=== PATIENT | female | born 1980 | race Caucasian/White ===

== ENCOUNTER 2019-06-14 18:08 | Observation (INO) | payer OTHER ==
[~2019-06-14] VITALS: Ht 157.5 cm; Wt 82.1 kg
[~2019-06-14 18:08] MED LIST: ALPR1TAB2 PO; OXYC-302 PO; VANC250C12 PO
--- NOTE | 2019-06-14 18:25 | NUR ---
KULDIP. REPORT RECEIVED FROM EMS. PT TOOK ONE FAKE PERCOCET(IT WAS GIVEN BY PT'S FRIEND AND PT THOUGHT IT WAS PERCOCET) THEN UNRESPONSIVE AT HOME. NARCAN GIVEN CARDIOVASCULAR RADIOLOGIC TECHNOLOGIST AND PT BECAME AOX3. RESPS EVEN AND UNLABORED. ALL MONITORS IN PLACE. CALL LIGHT WITHIN REACH.
--- NOTE | 2019-06-14 18:55 | NUR ---
Report received from Kourtney IBARRA.
--- NOTE | 2019-06-14 18:56 | NUR ---
REPORT GIVEN TO ONIEL IBARRA.
--- NOTE | 2019-06-14 19:10 | NUR ---
Trialed pt off O2. SpO2 measured as low as 69% at room air. Pt placed on 3 lpm O2 for low SpO2 readings.
[2019-06-14 19:54] LABS: MEAN CORPUSCULAR HEMOGLOBIN 30.6 pg (27.0-34.8); MEAN CORPUSCULAR HGB CONC 33.3 g/dL (32.4-35.8); PLATELET COUNT 355 x10^3/uL (130-400); RED BLOOD COUNT 4.41 x10^6/uL (3.82-5.3); RED CELL DISTRIBUTION WIDTH 13.7 % (9.6-15.2)
[2019-06-14 19:59] LABS: CHLORIDE 106 mmol/L (98-107)
[2019-06-14 20:04] LABS: ALANINE AMINOTRANSFERASE 62 U/L (12-78); ALBUMIN 3.8 g/dL (3.4-5.0); ALKALINE PHOSPHATASE 101 U/L (45-117); ANION GAP 6 mmol/L (5-15); BILIRUBIN,TOTAL 0.3 mg/dL (0.2-1.0); CALCIUM 8.2 mg/dL (8.5-10.1); CREATININE 0.88 mg/dL (0.55-1.02)
[2019-06-14] MEDS ORDERED: ONDANSETRON 2MG/ML, 2ML ONE (20:12)
[2019-06-14 20:17] LABS: BASOPHILS # (AUTO) 0.05 x10^3/uL (0-0.1); BASOPHILS % (AUTO) 0 % (0-1); EOSINOPHILS # (AUTO) 0.15 x10^3/uL (0-0.4); EOSINOPHILS % (AUTO) 1 % (1-7); LYMPHOCYTES # (AUTO) 1.33 x10^3/uL (1-3.4); LYMPHOCYTES % (AUTO) 4 % (22-44); MD SCAN; MONOCYTES # (AUTO) 1.34 x10^3/uL (0.2-0.8); MONOCYTES % (AUTO) 4 % (2-9); NEUTROPHILS # (AUTO) 27.49 x10^3/uL (1.8-6.8); NEUTROPHILS % (AUTO) 91 % (42-75)
[2019-06-14] MEDS ORDERED: SODIUM CHLORIDE 0.9% 1,000ML IVBOLUS ONE (20:30)
[2019-06-14] MEDS ORDERED: ONDANSETRON 2MG/ML, 2ML IVPush ONE (20:30)
--- NOTE | 2019-06-14 20:43 | NUR ---
PT. WAS VOMITING IN ROOM ABOUT 200ML OF UNDIGESTED FOOD. NEW ORDERS WERE RECEIVED FROM DR. LOPES. IV WAS NON-FUNCTIONING. NEW IV PLACED AND PT. MEDICATED PER MAR. IVF INFUSING PER ORDER. FRIEND AT FOR SUPPORT. ALL MONIOTRS REMAIN IN PLACE. ALL SAFETY MEASURES OBSERVED. PT. DROWSY BUT IS ABLE TO COMMUNICATE APPROPRIATELY WITH STAFF.
--- NOTE | 2019-06-14 21:59 | NUR ---
PT. MORE AWAKE AND SPEAKING WITH FRIEND AT BS. PT. REPORTS HER ONLY HOME MED IS PERCOCET FOR BACK PAIN. PT. REMAINS ON 2L OF O2 TO MAINTAIN O2 SAT IN THE HIGH 90'S. AWARE OF PLAN FOR ADMISSION.
--- NOTE | 2019-06-14 22:09 | NUR ---
FIRST ATTEMPT TO CALL REPORT TO FLOOR.
--- NOTE | 2019-06-14 22:13 | NUR ---
Report called to Rosanne IBARRA
[2019-06-14 22:33] VITALS: BP 117/76
[2019-06-14 23:34] VITALS: BP 117/76
[2019-06-15] MEDS ORDERED: ONDANSETRON 2MG/ML, 2ML IVPush PRN
[2019-06-15] MEDS ORDERED: ACETAMINOPHEN 325 MG TABLET PO PRN
[2019-06-15] MEDS ORDERED: IBUPROFEN 600 MG TABLET PO PRN
[2019-06-15] MEDS: SODIUM CHLORIDE 0.9% 1,000 ML IV SCH ×2 (00:42→07:57)
[2019-06-15] MEDS: HEPARIN 5,000 UNITS/ML, 1ML SQ SCH ×2 (00:42→07:57)
[2019-06-15 00:59] VITALS: BP 117/78
[2019-06-15 05:10] LABS: BASOPHILS # (AUTO) 0.02 x10^3/uL (0-0.1); BASOPHILS % (AUTO) 0 % (0-1); EOSINOPHILS % (AUTO) 0 % (1-7); LYMPHOCYTES # (AUTO) 1.68 x10^3/uL (1-3.4); LYMPHOCYTES % (AUTO) 10 % (22-44); MD NO; MEAN CORPUSCULAR HEMOGLOBIN 30.2 pg (27.0-34.8); MEAN CORPUSCULAR HGB CONC 32.7 g/dL (32.4-35.8); MEAN CORPUSCULAR VOLUME 92.4 fL (80-100); MEAN PLATELET VOLUME 7.9 fL (7.4-10.4); MONOCYTES # (AUTO) 0.82 x10^3/uL (0.2-0.8); MONOCYTES % (AUTO) 5 % (2-9); NEUTROPHILS # (AUTO) 15.08 x10^3/uL (1.8-6.8); NEUTROPHILS % (AUTO) 86 % (42-75); PLATELET COUNT 306 x10^3/uL (130-400); RED BLOOD COUNT 3.91 x10^6/uL (3.82-5.3); RED CELL DISTRIBUTION WIDTH 13.8 % (9.6-15.2)
[2019-06-15 05:14] LABS: ANION GAP 7 mmol/L (5-15); CALCIUM 8.1 mg/dL (8.5-10.1); CHLORIDE 107 mmol/L (98-107)
[2019-06-15 05:17] LABS: CREATININE 0.54 mg/dL (0.55-1.02)
[2019-06-15 06:19] LABS: AMPHETAMINE SCREEN, URINE Negative (Negative); BARBITURATE SCREEN, URINE Negative (Negative); BENZODIAZEPINE SCREEN, URINE Negative (Negative); CANNABINOID SCREEN, URINE Negative (Negative); COCAINE SCREEN, URINE Negative (Negative); METHADONE SCREEN, URINE Negative (Negative); OPIATE SCREEN, URINE Negative (Negative)
[2019-06-15 07:59] VITALS: BP 119/80
[2019-06-15 13:01] VITALS: BP 117/74
== END 2019-06-15 15:11 | disposition home or self-care (01) ==
LOC: ED 18:26 → INTOOBSV 22:43 → EDIP 22:43 → 4WST 22:48 → DCLOUNGE 06-15 15:07
PROVIDERS: ADMIT Family Medicine; ATTEND Family Medicine
DX: T50.901A Poisoning by unspecified drugs, medicaments and biological substances, accidental (unintentional), initial encounter (principal); R11.2 Nausea with vomiting, unspecified; F17.200 Nicotine dependence, unspecified, uncomplicated; D72.829 Elevated white blood cell count, unspecified; M54.9 Dorsalgia, unspecified; J96.91 Respiratory failure, unspecified with hypoxia; G89.29 Other chronic pain; F12.90 Cannabis use, unspecified, uncomplicated; Z79.899 Other long term (current) drug therapy
CPT/HCPCS: 36415; 71045; 80048; 80053; 80307; 85025; 96361; 96372; 96374; 96376; 99284; G0378; J1644; J2405; J7030